=== PATIENT | female | born 1955 | race Caucasian/White ===

== ENCOUNTER 2017-05-07 15:22 | Emergency (ER) | payer SELFPAY ==
[~2017-05-07] VITALS: Ht 157.5 cm; Wt 95.0 kg
[~2017-05-07 15:22] MED LIST: ALPR-140; BENZ100C70 PO; INSU3INS7 SQ; LORA-441; METF500T3; METF500T4; METO-53; MTF1000T PO; NPH,100C2 SQ; OXYC5TAB PO; PYRI50TA; SIMV40TA2 PO; SIMV40TA3 PO; SITA100T8 PO; SITA50TA2 PO; TRAM50TA2 PO
[2017-05-07 15:48] VITALS: Ht 157.5 cm; Wt 95.0 kg
== END 2017-05-07 20:30 | disposition left against medical advice (07) ==
LOC: E/R 15:22
DX: Z53.21 Procedure and treatment not carried out due to patient leaving prior to being seen by health care provider (principal)

== ENCOUNTER 2018-04-15 06:18 | Day surgery (SDC) | END 2018-04-15 16:31 | disposition home or self-care (01) ==